=== PATIENT | male | born 1985 | race Caucasian/White ===

== ENCOUNTER 2016-11-13 19:14 | Emergency (ER) | payer OTHER ==
[~2016-11-13] VITALS: Ht 170.2 cm; Wt 91.0 kg
[2016-11-13 19:30] VITALS: Ht 170.2 cm; Wt 91.0 kg
[2016-11-13] MEDS ORDERED: AZITHROMYCIN 250 MG TAB PO ONE (22:30)
[2016-11-13] MEDS ORDERED: CEFTRIAXONE 250 MG INJ IM ONE (22:30)
[2016-11-13] MEDS ORDERED: CEPH-443 PO (22:31)
[2016-11-13] MEDS ORDERED: NAPR-688 PO (22:32)
--- NOTE | 2016-11-13 22:36 | ERD ---
ER Documentation Chief Complaint Date/Time DATE: 11/13/16 TIME: 22:33 Chief Complaint pain at genital area foreskin x 4 days HPI This 31-year-old male presents with irritation around his genital area for 4 days. He did use some new oil on the penis the day before this happened. He is ready seen his primary care doctor who thought it might be a fungal infection given the fungal cream however rash is only gotten worse. He is urinating normally. He is also worried about possible STD exposure and has had a negative HIV test in the last few days. ROS All systems reviewed and are negative except as per history of present illness. Medications Home Meds Active Scripts Naproxen* (Naproxen*) 500 Mg Tablet, 500 MG PO BID Y for PAIN, #20 TAB Prov:FRANCESCATALINACORBY DO 11/13/16 Cephalexin* (Keflex*) 500 Mg Capsule, 500 MG PO QID for 5 Days, CAP Prov:FRANCESCORBY DO 11/13/16 Allergies Allergies: Coded Allergies: No Known Allergy (Unverified , 11/13/16) PMhx/Soc Medical and Surgical Hx: pt denies Medical Hx, pt denies Surgical Hx Hx Alcohol Use: Yes (SOCIALLY) Hx Substance Use: No Hx Tobacco Use: Yes (1 1/2PACK/DAY) Smoking Status: Heavy tobacco smoker Physical Exam Vitals Vital Signs Date Time Temp Pulse Resp B/P Pulse Ox O2 Delivery O2 Flow Rate FiO2 11/13/16 19:30 98.3 116 20 124/70 100 Physical Exam Const: [] No distress Abd/genitals: Soft, non tender, non distended. Normal bowel sounds. Is with normal appearance until foreskin is easily retracted showing erythematous irritation with no vesicular lesions, no ulcerations, 2 areas of very slight raised erythema and some mild skin breakdown. No foul order or purulence. Results 24 hrs Current Medications Medications (Trade) Dose Ordered Sig/Laverne Route PRN Reason Start Time Stop Time Status Last Admin Dose Admin Ceftriaxone Sodium (Rocephin) 250 mg ONCE ONCE IM 11/13/16 22:30 11/13/16 22:31 DC Azithromycin (Zithromax) 1,000 mg ONCE ONCE PO 11/13/16 22:30 11/13/16 22:31 DC Procedures/MDM Patient likely has balanitis. As you concerned about exposure to possible STDs does have mild genital lesions I will treat him both Rocephin and azithromycin emergency room. Antifungal cream did not have any effect except to make the rash appear worse to him I am going to give him Keflex for 5 days as well. There is no evidence of herpes at this time or any apparent potential for phimosis or paraphimosis. Primary care e follow-up is advised. Also advising urology follow-up. Return precautions to the ER given. Departure Diagnosis: Primary Impression: Balanitis Condition: Stable Patient Instructions: Rei Additional Instructions: Call your primary care doctor TOMORROW for an appointment during the next 2-3 days.See the doctor sooner or return here if your condition worsens before your appointment time. CORBY DANIELS DO Nov 13, 2016 22:36
[2016-11-13 22:55] VITALS: BP 160/105; PULSE 94; RESP 18; TEMP 98.4
== END 2016-11-13 22:37 | disposition home or self-care (01) ==
LOC: FTE 19:14
DX: N48.1 Balanitis (principal); F17.210 Nicotine dependence, cigarettes, uncomplicated
CPT/HCPCS: 96372; J0696; Z7502; Z7610

== ENCOUNTER 2017-02-22 15:58 | Emergency (ER) | payer OTHER ==
[~2017-02-22] VITALS: Ht 180.3 cm; Wt 93.0 kg
[~2017-02-22 15:58] MED LIST: CEPH-443 PO; NAPR-688 PO
[2017-02-22 16:03] VITALS: Ht 180.3 cm; Wt 93.0 kg
--- NOTE | 2017-02-22 16:50 | ERD ---
ER Documentation Chief Complaint Date/Time DATE: 02/22/17 TIME: 16:47 Chief Complaint CHEST PAIN TODAY AT NOON HPI This is a 31-year-old male with a history of anxiety and hypertension presenting to the emergency department complaining of a localized left sided chest pain that he describes as pressure that occurred at noon. Patient states the pain was 10 out of 10 severe lasting for about 2 minutes. He states that after that it became 1 out of 10. He admits to having nonspecific vague mild shortness of breath at that time. Patient states that this chest pain occurs once every 6 months and he has been already seen by his primary care doctor in which he had a stress test and Holter monitor however the results are still pending. He states that he will be following up on March 24 for the results. Patient denies any drug use or alcohol use. He admits to having 1 pack of cigarettes per day for the past 10 years. Denies any recent traveling ROS All systems reviewed and are negative except as per history of present illness. Medications Home Meds Active Scripts Naproxen* (Naproxen*) 500 Mg Tablet, 500 MG PO BID Y for PAIN, #20 TAB Prov:FRANCESCORBY DO 11/13/16 Cephalexin* (Keflex*) 500 Mg Capsule, 500 MG PO QID for 5 Days, CAP Prov:CORBY DANIELS DO 11/13/16 Allergies Allergies: Coded Allergies: No Known Allergy (Unverified , 11/13/16) PMhx/Soc Hx Alcohol Use: Yes (SOCIALLY) Hx Substance Use: No Hx Tobacco Use: Yes (1 1/2PACK/DAY) Physical Exam Vitals Vital Signs Date Time Temp Pulse Resp B/P Pulse Ox O2 Delivery O2 Flow Rate FiO2 02/22/17 16:03 98.2 93 18 150/91 99 Physical Exam GENERAL: no acute distress, non-toxic appearing, sitting up in bed HENT: normocephalic/atraumatic EYES: conjunctiva is normal NECK: no noticeable or palpable swelling, no carotid bruits, no JVD CARDIOVASCULAR: RRR, good S1S2, no murmurs or gallops heard PULM: clear to auscultation, no use of accessory muscles, no crackles or wheezes. ABDOMEN: normal bowel sounds, abdomen soft and nontender EXT: no edema, cyanosis or clubbing MUSCULOSKELETAL: 5/5 strength, normal range of motion, no swollen or erythematous joints. NEURO: alert and oriented SKIN: no rashes, skin warm and dry, no erythematous areas BREAST: breast exam was not relevant, therefore not preformed PSYCH: normal mood and mentation, denies suicidal or homicidal ideation and thoughts Result Diagram: 02/22/17 1705 02/22/17 1705 Results 24 hrs Laboratory Tests Test 02/22/17 17:05 White Blood Count 9.710^3/ul Red Blood Count 5.4810^6/ul Hemoglobin 17.5g/dl Hematocrit 48.7% Mean Corpuscular Volume 88.9fl Mean Corpuscular Hemoglobin 31.9pg Mean Corpuscular Hemoglobin Concent 35.9g/dl Red Cell Distribution Width 12.8% Platelet Count 47084^3/UL Mean Platelet Volume 11.4fl Neutrophils % 46.1% Lymphocytes % 38.9% Monocytes % 11.5% Eosinophils % 2.2% Basophils % 0.6% Nucleated Red Blood Cells % 0.0/100WBC Neutrophils # 4.510^3/ul Lymphocytes # 3.810^3/ul Monocytes # 1.110^3/ul Eosinophils # 0.210^3/ul Basophils # 0.110^3/ul Nucleated Red Blood Cells # 0.010^3/ul Sodium Level 140mmol/L Potassium Level 4.2mmol/L Chloride Level 101mmol/L Carbon Dioxide Level 27mmol/L Anion Gap 16 Blood Urea Nitrogen 12mg/dl Creatinine 0.89mg/dl Glucose Level 93mg/dl Calcium Level 9.7mg/dl Troponin I < 0.012ng/ml Procedures/MDM This is a 31-year-old male with a history of anxiety and hypertension presenting to the emergency department complaining of a localized left sided chest pain that he describes as pressure that occurred at noon. Patient states that it was severe for a couple minutes and then resolved. Patient is being followed up with his primary care physician, he is already had a stress test and Holter monitor and results are still pending. Patient will be following up for results on March 24. I have a low suspicion for STEMI or non-stemi, low suspicion for pulmonary embolism, pneumonia or pneumothorax. An EKG was done in the ED and was unremarkable for STEMI or dysrhythmia. Chest x-ray did not show any infiltrates, and with Dr. elizabeth. Blood work was done, troponin was negative in the ED. I discussed with patient to follow-up with his primary care physician. Patient is hematuria stable for discharge for home. Discussed return to the ER for any worsening signs or symptoms he understands and agrees with this plan EKG: read and signed off by myself and Dr.Ben Stephens Rate/Rhythm: Normal Sinus Rhythm at 90bpm QRS, ST, T-waves: Nonspecific T wave changes in leads III, aVR, V1 Impression: No evidence of ischemia or arrhythmia Chest X-ray 1V Interpreted by me: Soft Tissue: No acute abnormalities Bones: No acute abnormalities Mediastinum/Cardiac Silhouette/Lungs: No acute abnormalities Departure Diagnosis: Primary Impression: Chest pain Condition: Stable AMELIA JEROME PA-C February 22, 2017 16:50
[2017-02-22 17:17] LABS: ADD SCAN DIFF NO
[2017-02-22 17:20] LABS: BASOPHIL # 0.1 10^3/ul (0.0-0.1); BASOPHILS % 0.6 % (0.0-2.0); EOSINOPHILS # 0.2 10^3/ul (0.0-0.5); EOSINOPHILS % 2.2 % (0.0-7.0); HEMATOCRIT 48.7 % (42.0-52.0); HEMOGLOBIN 17.5 g/dl (14.0-18.0); LYMPHOCYTES # 3.8 10^3/ul (0.8-2.9); LYMPHOCYTES % 38.9 % (15.0-51.0); MEAN CORPUSCULAR HEMOGLOBIN 31.9 pg (29.0-33.0); MEAN CORPUSCULAR HGB CONC 35.9 g/dl (32.0-37.0); MEAN CORPUSCULAR VOLUME 88.9 fl (82.0-101.0); MEAN PLATELET VOLUME 11.4 fl (7.4-10.4); MONOCYTE # 1.1 10^3/ul (0.3-0.9); MONOCYTES % 11.5 % (0.0-11.0); NEUTROPHIL # 4.5 10^3/ul (1.6-7.5); NEUTROPHILS % 46.1 % (39.0-77.0); PLATELET COUNT 176 10^3/UL (140-415); RED BLOOD COUNT 5.48 10^6/ul (4.70-6.10); RED CELL DISTRIBUTION WIDTH 12.8 % (11.5-14.5); WHITE BLOOD COUNT 9.7 10^3/ul (4.8-10.8)
--- NOTE | 2017-02-22 17:24 | RADRPT ---
PROCEDURE: XR Chest. CLINICAL INDICATION: Chest pain. TECHNIQUE: Single frontal view. COMPARISON: None. FINDINGS: The lungs are clear. The heart size is normal. There is no pleural effusion. There is no pneumothorax. IMPRESSION: 1. Normal chest radiograph. RPTAT: QQ .Brett Bejarano MD, Date Time Electronically viewed and signed by .Brett Bejarano MD, on 02/22/2017 17:24 .R/
[2017-02-22 18:09] LABS: CHLORIDE 101 mmol/L (97-110); POTASSIUM 4.2 mmol/L (3.5-5.1); SODIUM 140 mmol/L (135-144)
[2017-02-22 18:12] LABS: ANION GAP 16 (8-16); BLOOD UREA NITROGEN 12 mg/dl (7-20); CARBON DIOXIDE 27 mmol/L (21-31); CREATININE 0.89 mg/dl (0.61-1.24)
[2017-02-22 18:13] LABS: CALCIUM 9.7 mg/dl (8.4-10.2); GLUCOSE 93 mg/dl (70-220)
[2017-02-22 18:26] LABS: TROPONIN-I < 0.012 ng/ml (0.00-0.12)
== END 2017-02-22 19:07 | disposition home or self-care (01) ==
LOC: FTE 15:58
DX: R07.89 Other chest pain (principal); F17.210 Nicotine dependence, cigarettes, uncomplicated; I10 Essential (primary) hypertension
CPT/HCPCS: 71010; 80048; 84484; 85025; 93005

== ENCOUNTER 2017-03-23 18:32 | Emergency (ER) | payer OTHER ==
[~2017-03-23] VITALS: Ht 177.8 cm; Wt 93.5 kg
[2017-03-23 18:36] VITALS: Ht 177.8 cm; Wt 93.5 kg
[2017-03-23] MEDS ORDERED: IBUP-1542 PO (18:54)
[2017-03-23] MEDS ORDERED: IBUPROFEN 800 MG TAB PO ONE (19:00)
--- NOTE | 2017-03-23 19:51 | ERD ---
ER Documentation Chief Complaint Date/Time DATE: 03/23/17 TIME: 19:48 Chief Complaint neck pain x 2 days after seeing chiropractor HPI Patient is a 31-year-old male with hypertension who presents for neck pain. He said that he has had neck pain for a long time. He went to his chiropractor yesterday and had an adjustment done to his neck. He said that his pain is a 2 out of 10. He has had no treatment today for the pain. He did not call his primary doctor. He feels lightheaded. He also has pain around his left eye. The neck pain is on the right side of the neck. Upon review of old medical records this is the patient's third visit to the ER but review of the emergency department information exchange shows visits to another ER as well. ROS All systems reviewed and are negative except as per history of present illness. Medications Home Meds Active Scripts Ibuprofen* (Motrin*) 600 Mg Tab, 600 MG PO Q8, #30 TAB Prov:SEHRIF HECTOR MD 03/23/17 Naproxen* (Naproxen*) 500 Mg Tablet, 500 MG PO BID Y for PAIN, #20 TAB Prov:CORBY DANIELS DO 11/13/16 Cephalexin* (Keflex*) 500 Mg Capsule, 500 MG PO QID for 5 Days, CAP Prov:CORBY DANIELS DO 11/13/16 Allergies Allergies: Coded Allergies: No Known Allergy (Unverified , 11/13/16) PMhx/Soc Medical and Surgical Hx: pt denies Medical Hx, pt denies Surgical Hx History of Surgery: No Anesthesia Reaction: No Hx Neurological Disorder: No Hx Respiratory Disorders: No Hx Cardiac Disorders: No Hx Psychiatric Problems: No Hx Miscellaneous Medical Probl: No Hx Alcohol Use: No Hx Substance Use: No Hx Tobacco Use: Yes Smoking Status: Current every day smoker FmHx Family History: diabetes Physical Exam Vitals Vital Signs Date Time Temp Pulse Resp B/P Pulse Ox O2 Delivery O2 Flow Rate FiO2 03/23/17 18:36 99.1 72 20 157/80 99 Physical Exam Const: No acute distress Head: Atraumatic Eyes: Normal Conjunctiva ENT: Normal External Ears, Nose and Mouth. Neck: Full range of motion..~ No meningismus. Pain over the strap muscles of the right neck, no bruits Resp: Clear to auscultation bilaterally Cardio: Regular rate and rhythm, no murmurs Abd: Soft, non tender, non distended. Normal bowel sounds Skin: No petechiae or rashes Back: No midline or flank tenderness Ext: No cyanosis, or edema Neur: Awake and alert, cranial nerves II through XII intact, strength is 5 out of 5 in all 4 extremities, no slurred speech Psych: Normal Mood and Affect Results 24 hrs Current Medications Medications (Trade) Dose Ordered Sig/Laverne Route PRN Reason Start Time Stop Time Status Last Admin Dose Admin Ibuprofen (Motrin) 800 mg ONCE ONCE PO 03/23/17 19:00 03/23/17 19:01 DC Procedures/MDM Smoking Cessation Therapy: Pt. was lectured for greater than 3 minutes on the health risks of continued smoking and the benefits of cessation. Patient is a 31-year-old male who presents with right-sided neck pain. At this point I doubt serious etiology such as stroke or carotid dissection. He has a history of head and neck pain in the past. There may be an element of drug- seeking behavior given his visits to 2 separate emergency departments. I will not give him narcotic medicines for this. I will give him a prescription for ibuprofen and a dose of ibuprofen in the emergency department. This may be musculoskeletal type pain. I do not believe he requires further workup or admission the hospital at this time but he should follow-up closely with a primary doctor within 24 hours for reevaluation. Departure Diagnosis: Primary Impression: Neck pain Condition: Fair Patient Instructions: Neck Pain, No Trauma Referrals: [facility] H.CChintan (PCP) MILANA CARMEN Additional Instructions: SPECIALIST: YOU HAVE A MEDICAL CONDITION WHICH REQUIRES YOU TO SEE A SPECIALIST WITHIN THE NEXT 1-2 DAYS. PLEASE FOLLOW UP WITH YOUR PRIMARY PHYSICIAN FOR REFFERAL.IF YOU DO NOT HAVE A PRIMARY CARE PHYSICIAN AND/OR YOU CAN NOT AFFORD TO SEE A PHYSICIAN THE FOLLOWING RESOURCES HAVE BEEN SUPPLIED TO YOU. IT IS YOUR RESPONSIBILITY TO BE SEEN BY THE SPECIALIST SHERIF HECTOR MD Mar 23, 2017 19:51
== END 2017-03-23 19:08 | disposition home or self-care (01) ==
LOC: FTE 18:32
DX: M54.2 Cervicalgia (principal); F17.210 Nicotine dependence, cigarettes, uncomplicated
CPT/HCPCS: 99283

== ENCOUNTER 2017-07-14 16:43 | Emergency (ER) | payer OTHER ==
[~2017-07-14] VITALS: Ht 175.3 cm; Wt 88.5 kg
[~2017-07-14 16:43] MED LIST changes: +IBUP-1542 PO
[2017-07-14 17:01] VITALS: Ht 175.3 cm; Wt 88.5 kg
[2017-07-14 19:50] LABS: BASOPHIL # 0.1 10^3/ul (0.0-0.1); BASOPHILS % 0.4 % (0.0-2.0); EOSINOPHILS # 0.2 10^3/ul (0.0-0.5); EOSINOPHILS % 1.7 % (0.0-7.0); HEMATOCRIT 51.3 % (42.0-52.0); HEMOGLOBIN 18.3 g/dl (14.0-18.0); LYMPHOCYTES # 3.5 10^3/ul (0.8-2.9); LYMPHOCYTES % 29.9 % (15.0-51.0); MEAN CORPUSCULAR HEMOGLOBIN 31.8 pg (29.0-33.0); MEAN CORPUSCULAR HGB CONC 35.7 g/dl (32.0-37.0); MEAN CORPUSCULAR VOLUME 89.1 fl (82.0-101.0); MEAN PLATELET VOLUME 11.3 fl (7.4-10.4); MONOCYTES % 8.1 % (0.0-11.0); NEUTROPHIL # 6.9 10^3/ul (1.6-7.5); NEUTROPHILS % 59.2 % (39.0-77.0); PLATELET COUNT 183 10^3/UL (140-415); RED BLOOD COUNT 5.76 10^6/ul (4.70-6.10); RED CELL DISTRIBUTION WIDTH 12.7 % (11.5-14.5); WHITE BLOOD COUNT 11.7 10^3/ul (4.8-10.8)
[2017-07-14 20:04] LABS: INR 0.92; PROTIME 12.4 Sec (12.2-14.2)
[2017-07-14 20:05] LABS: ANION GAP 13 (8-16); BLOOD UREA NITROGEN 13 mg/dl (7-20); CALCIUM 9.8 mg/dl (8.4-10.2); CARBON DIOXIDE 29 mmol/L (21-31); CHLORIDE 103 mmol/L (97-110); CREATININE 0.96 mg/dl (0.61-1.24); GLUCOSE 93 mg/dl (70-220); PARTIAL THROMBOPLASTIN TIME 27.5 Sec (25.0-35.0); POTASSIUM 4.4 mmol/L (3.5-5.1); SODIUM 141 mmol/L (135-144)
[2017-07-14 20:19] LABS: TROPONIN-I < 0.012 ng/ml (0.00-0.12)
--- NOTE | 2017-07-14 20:21 | RADRPT ---
PROCEDURE: XR Chest. CLINICAL INDICATION: Chest pain. TECHNIQUE: Single frontal chest x-ray. COMPARISON: 02/22/2017 FINDINGS: The cardiomediastinal silhouette is unremarkable. There is no congestive heart failure.. No focal i nfiltrate is seen. There is no pleural effusion. There is no pneumothorax. The osseous structures are unremarkable. IMPRESSION: 1. No active disease. RPTAT: HMVK .Tramaine Saeed MD, MD Date Time Electronically viewed and signed by .Tramaine Saeed MD, on 07/14/2017 20:20 .K/
[2017-07-14] MEDS ORDERED: IBUP-1542 PO (20:27)
[2017-07-14 20:48] VITALS: BP 129/89; PULSE 69; RESP 16; TEMP 98.6
--- NOTE | 2017-07-14 23:33 | ERD ---
ER Documentation Chief Complaint Date/Time DATE: 07/14/17 TIME: 23:29 Chief Complaint CP with anxiety x 3 days HPI Patient is a 32-year-old male presenting to the emergency department with complaints of left-sided chest pain and left arm weakness ongoing intermittently for the past 3 days. He states he has had waxing and waning chest pain over the past year and has had an echo completed which is ordered by his primary care physician. He has not seen a business line manager. He does have past medical history of hypertension and anxiety and he smokes approximately 1.5 packs of cigarettes per day. Symptoms are not worse with exertion. He has no family cardiac history. Symptoms are moderate in severity. He denies other symptoms at this time. ROS All systems reviewed and are negative except as per history of present illness. Medications Home Meds Active Scripts Ibuprofen* (Motrin*) 600 Mg Tab, 600 MG PO Q6, #30 TAB Prov:EDISON TEJEDA PA-C 07/14/17 Ibuprofen* (Motrin*) 600 Mg Tab, 600 MG PO Q8, #30 TAB Prov:SHERIF HECTOR MD 03/23/17 Naproxen* (Naproxen*) 500 Mg Tablet, 500 MG PO BID Y for PAIN, #20 TAB Prov:CORBY DANIELS DO 11/13/16 Cephalexin* (Keflex*) 500 Mg Capsule, 500 MG PO QID for 5 Days, CAP Prov:CORBY DANIELS DO 11/13/16 Allergies Allergies: Coded Allergies: No Known Allergy (Unverified , 11/13/16) PMhx/Soc Medical and Surgical Hx: pt denies Medical Hx, pt denies Surgical Hx History of Surgery: No Anesthesia Reaction: No Hx Neurological Disorder: No Hx Respiratory Disorders: No Hx Cardiac Disorders: No Hx Psychiatric Problems: No Hx Miscellaneous Medical Probl: No Hx Alcohol Use: No Hx Substance Use: No Hx Tobacco Use: Yes Smoking Status: Current every day smoker Physical Exam Vitals Vital Signs Date Time Temp Pulse Resp B/P Pulse Ox O2 Delivery O2 Flow Rate FiO2 07/14/17 20:48 98.6 69 16 129/89 100 Room Air 07/14/17 17:01 98.3 89 18 127/88 99 Physical Exam Const: Nontoxic, well-appearing male in no acute distress. Head: Atraumatic Eyes: Normal Conjunctiva ENT: Normal External Ears, Nose and Mouth. Neck: Full range of motion..~ No meningismus. Resp: Clear to auscultation bilaterally Cardio: Regular rate and rhythm, no murmurs. There is reproducible chest tenderness over the left chest wall. Abd: Soft, non tender, non distended. Normal bowel sounds Skin: No petechiae or rashes Back: No midline or flank tenderness Ext: No cyanosis, or edema Neur: Awake and alert Psych: Normal Mood and Affect Result Diagram: 07/14/17193207/14/171932 Results 24 hrs Laboratory Tests Test 07/14/17 19:33 White Blood Count 11.710^3/ul Red Blood Count 5.7610^6/ul Hemoglobin 18.3g/dl Hematocrit 51.3% Mean Corpuscular Volume 89.1fl Mean Corpuscular Hemoglobin 31.8pg Mean Corpuscular Hemoglobin Concent 35.7g/dl Red Cell Distribution Width 12.7% Platelet Count 66878^3/UL Mean Platelet Volume 11.3fl Neutrophils % 59.2% Lymphocytes % 29.9% Monocytes % 8.1% Eosinophils % 1.7% Basophils % 0.4% Nucleated Red Blood Cells % 0.0/100WBC Neutrophils # 6.910^3/ul Lymphocytes # 3.510^3/ul Monocytes # 1.010^3/ul Eosinophils # 0.210^3/ul Basophils # 0.110^3/ul Nucleated Red Blood Cells # 0.010^3/ul Prothrombin Time 12.4Sec Prothrombin Time Ratio 1.0 INR International Normalized Ratio 0.92 Activated Partial Thromboplast Time 27.5Sec Sodium Level 141mmol/L Potassium Level 4.4mmol/L Chloride Level 103mmol/L Carbon Dioxide Level 29mmol/L Anion Gap 13 Blood Urea Nitrogen 13mg/dl Creatinine 0.96mg/dl Glucose Level 93mg/dl Calcium Level 9.8mg/dl Troponin I < 0.012ng/ml Procedures/MDM 32-year-old male presenting to the emergency department with complaints of chest pain. Presentation is not consistent with acute coronary syndrome as it has been ongoing intermittently over the past year. There was also some reproducible chest wall tenderness noted on examination. CBC showed mild leukocytosis at 11.7, but not significant there is no signs of anemia. Chemistry panel showed no acute abnormalities. Troponin was within normal limits. EKG was not concerning for coronary ischemia. The patient was offered medication in the department but he declined. Chest x-ray showed no active disease. Symptoms are likely musculoskeletal and the patient was diagnosed with chest wall pain. Strict ER return precautions were discussed. Close follow-up with the primary care physician within 1-2 days was advised. Low suspicion for acute coronary syndrome, pulmonary embolism, pneumothorax, aortic dissection, or other emergent conditions at time of discharge. EKG: Reviewed by attending physician, Dr. Evy Galo. Rate/Rhythm: Normal sinus rhythm with a rate of 74 bpm. QRS, ST, T-waves: No changes consistent w/ acute ischemia Impression: No evidence of ischemia or arrhythmia PROCEDURE: XR Chest. CLINICAL INDICATION: Chest pain. TECHNIQUE: Single frontal chest x-ray. COMPARISON: 02/22/2017 FINDINGS: The cardiomediastinal silhouette is unremarkable. There is no congestive heart failure.. No focal infiltrate is seen. There is no pleural effusion. There is no pneumothorax. The osseous structures are unremarkable. IMPRESSION: 1. No active disease. RPTAT: HMVK .Tramaine Saeed MD, MD Date Time Electronically viewed and signed by .Tramaine Saeed MD, MD on 07/14/2017 20:20 Departure Diagnosis: Primary Impression: Chest wall pain Condition: Fair Patient Instructions: Chest Wall Pain, Costochondritis Additional Instructions: Follow up with your PCP within the next 1-3 days for a repeat evaluation. If you require a referral to a specialist, your Primary Care Provider may be able to provide this for you. In most patient cases, a referral is not required. If you have further questions regarding this matter, please ask your Primary Care Provider. Return the the emergency department immediately if symptoms worsen or change. If you have any questions regarding medications, ask your pharmacist or us before you leave. If any adverse reactions, occur while taking your medications, discontinue the treatment and return to the emergency department immediately. If any new or worsening symptoms, uncontrolled fevers, or other unexplained symptoms occur, return to the emergency department immediately. Take your medications as directed, and complete the entire course of treatment. EDISON TEJEDA PA-C Jul 14, 2017 23:33
== END 2017-07-14 20:49 | disposition home or self-care (01) ==
LOC: FTE 16:43
DX: R07.89 Other chest pain (principal); F17.210 Nicotine dependence, cigarettes, uncomplicated
CPT/HCPCS: 36415; 71010; 80048; 84484; 85025; 85610; 85730; 93005; Z7502

== ENCOUNTER 2017-09-02 21:23 | Emergency (ER) | payer OTHER ==
[~2017-09-02] VITALS: Ht 170.2 cm; Wt 88.6 kg
[2017-09-02 21:50] VITALS: Ht 170.2 cm; Wt 88.6 kg
[2017-09-03] MEDS ORDERED: DEXAMETHASONE 10 MG/ML 1 ML INJ IM ONE
[2017-09-03] MEDS ORDERED: ALBUTEROL 0.083% (NEB) 2.5 MG/3 ML AMP HHN STA
[2017-09-03] MEDS ORDERED: IPRATROPIUM (NEB) 0.5 MG/2.5 ML AMP HHN ONE
--- NOTE | 2017-09-03 00:57 | RADRPT ---
PROCEDURE: XR Chest. CLINICAL INDICATION: Cough. TECHNIQUE: Portable AP view of the chest was obtained. COMPARISON: 07/14/2017 FINDINGS: The cardiomediastinal silhouette is within normal limits. The lungs are clear. There is no evidenc e for pleural effusion, pneumothorax or pulmonary vascular congestion. The osseous structures are i ntact with no evidence for acute abnormality. RPTAT:HJJR IMPRESSION: No evidence for acute intrathoracic pathology or change from 07/14/2017. Physician Dipika Date Time Electronically viewed and signed by Juan Haines Physician on 09/03/2017 00:56 /
[2017-09-03] MEDS ORDERED: ALBU8.5H3 INH (01:08)
[2017-09-03] MEDS ORDERED: PRED20TA PO (01:08)
[2017-09-03] MEDS ORDERED: PROM6.25 PO (01:08)
--- NOTE | 2017-09-03 02:08 | ERD ---
ER Documentation Chief Complaint Chief Complaint cough x 3 days HPI 32-year-old male complaining of cough with flulike symptoms 5 days ago. Patient states that he had a fever a couple days ago which has resolved. He has a productive cough and feels that there is something stuck in his chest that will not come out. He is taking azithromycin. Denies continued fever and denies shortness of breath. No hemoptysis. Patient is also taking DayQuil and NyQuil. Denies medical problems. NKDA. Surgical history: Denies. Social history smokes a pack a day ROS All systems reviewed and are negative except as per history of present illness. Medications Home Meds Active Scripts Promethazine Hcl* (Phenergan* Liq) 6.25 Mg/5 Ml Syrup, 6.25 MG PO Q6H Y for COUGH, #100 ML Prov:WENDY OBANDO PA-C 09/03/17 Albuterol Sulfate* (Proair HFA*) 8.5 Gm Hfa.aer.ad, 2 PUFF INH Q4, #1 INHALER Prov:WENDY OBANDO PA-C 09/03/17 Prednisone* (Prednisone*) 20 Mg Tab, 40 MG PO DAILY for 4 Days, TAB Prov:WENDY OBANDO PA-C 09/03/17 Ibuprofen* (Motrin*) 600 Mg Tab, 600 MG PO Q6, #30 TAB Prov:EDISON TEJEDA PA-C 07/14/17 Ibuprofen* (Motrin*) 600 Mg Tab, 600 MG PO Q8, #30 TAB Prov:SHERIF HECTOR MD 03/23/17 Naproxen* (Naproxen*) 500 Mg Tablet, 500 MG PO BID Y for PAIN, #20 TAB Prov:CORBY DANIELS DO 11/13/16 Cephalexin* (Keflex*) 500 Mg Capsule, 500 MG PO QID for 5 Days, CAP Prov:CORBY DANIELS DO 11/13/16 Allergies Allergies: Coded Allergies: No Known Allergy (Unverified , 11/13/16) PMhx/Soc Medical and Surgical Hx: pt denies Surgical Hx History of Surgery: No Anesthesia Reaction: No Hx Neurological Disorder: No Hx Respiratory Disorders: No Hx Cardiac Disorders: Yes (HTN) Hx Psychiatric Problems: No Hx Miscellaneous Medical Probl: No Hx Alcohol Use: No Hx Substance Use: No Hx Tobacco Use: Yes Smoking Status: Heavy tobacco smoker Physical Exam Vitals Vital Signs Date Time Temp Pulse Resp B/P Pulse Ox O2 Delivery O2 Flow Rate FiO2 09/03/17 00:14 89 17 99 21 09/02/17 21:50 98.8 90 20 136/91 98 Physical Exam GENERAL: The patient is well-appearing, well-nourished, in no acute distress HEENT: Atraumatic. Conjunctivae are pink. Pupils equal, round, and reactive to light. There is no scleral icterus. Tympanic membranes clear bilaterally. Oropharynx clear. No nystagmus or photophobia. NECK: C-spine is soft and supple. There is no meningismus. There is no cervical lymphadenopathy. CHEST: Diffuse rhonchi heard on auscultation with the occasional wheeze. Breath sounds heard in all lung linn. HEART: Regular rate and rhythm. No murmurs, clicks, rubs or gallops. No S3 or S4. Results 24 hrs Current Medications Medications (Trade) Dose Ordered Sig/Laverne Route PRN Reason Start Time Stop Time Status Last Admin Dose Admin Albuterol (Proventil 0.083% (Neb)) 2.5 mg ONCE STAT HHN 09/03/17 00:00 09/03/17 00:03 DC 09/03/17 00:14 Ipratropium [place] (Atrovent 0.02% (Neb)) 0.5 mg ONCE ONCE HHN 09/03/17 00:00 09/03/17 00:03 DC 09/03/17 00:14 Dexamethasone (Decadron) 10 mg ONCE ONCE IM 09/03/17 00:00 09/03/17 00:03 DC Procedures/MDM DIAGNOSTIC IMAGING REPORT Patient: CASI GODOY : 1985 Age: 32 Sex: M MR #: [id number] DOS: 09/03/17 0000 Ordering MD: GEORGIA OBANDO PA-C Location: [facility] Room/Bed: PROCEDURE: XR Chest. CLINICAL INDICATION: Cough. TECHNIQUE: Portable AP view of the chest was obtained. COMPARISON: 07/14/2017 FINDINGS: The cardiomediastinal silhouette is within normal limits. The lungs are clear. There is no evidence for pleural effusion, pneumothorax or pulmonary vascular congestion. The osseous structures are intact with no evidence for acute abnormality. RPTAT:HJJR IMPRESSION: No evidence for acute intrathoracic pathology or change from 07/14/2017. ER Course: Albuterol and Atrovent breathing treatment with Decadron given in ED. Patient tolerated procedure well and symptoms improved. MDM: 32-year-old male complaining of productive cough. A low suspicion for pneumonia as patient's chest x-ray is within normal limits. Patient's vital signs are stable. Patient likely has reactive airway secondary to viral cough. Patient will be discharged with steroids and breathing medications. Patient is told to continue taking azithromycin as previously prescribed. I have low suspicion for PE. Low suspicion for other pulmonary emergencies at this time. Patient's exams are not concerning. Patient is discharged with strict ER precautions and recommended to follow-up with primary care within 1-2 days for close evaluation. Patient is told if symptoms change or worsen to return to the ER. All questions answered at discharge. Departure Diagnosis: Primary Impression: Cough Condition: Stable Patient Instructions: Cough, Chronic, Uncertain Cause, (Adult) Referrals: [facility] (PCP) Additional Instructions: FOLLOW UP WITH YOUR PRIMARY CARE PHYSICIAN TOMORROW.Return to this facility if you are not improving as expected. WENDY OBANDO PA-C Sep 03, 2017 02:08
== END 2017-09-03 01:13 | disposition home or self-care (01) ==
LOC: FTE 21:23
DX: R05 Cough (principal); I10 Essential (primary) hypertension; F17.210 Nicotine dependence, cigarettes, uncomplicated
CPT/HCPCS: 71010; 94664; Z7502; Z7610; J1100

== ENCOUNTER 2017-10-21 18:46 | Emergency (ER) | END 2017-10-21 23:20 | disposition home or self-care (01) ==

== ENCOUNTER 2018-06-14 22:25 | Emergency (ER) | END 2018-06-15 01:51 | disposition home or self-care (01) ==

== ENCOUNTER 2018-10-04 12:18 | Emergency (ER) | END 2018-10-04 14:35 | disposition home or self-care (01) ==

== ENCOUNTER 2018-11-26 16:16 | Emergency (ER) | payer SELFPAY ==
[~2018-11-26] VITALS: Ht 177.8 cm; Wt 83.1 kg
[~2018-11-26 16:16] MED LIST changes: +AZIT250T PO; -CEPH-443 PO; +D-ME118S24 PO; +SODI30SP2 NS
[2018-11-26 16:19] VITALS: BP 157/103; PULSE 91; RESP 18; Ht 177.8 cm; Wt 83.1 kg
== END 2018-11-26 19:35 | disposition left against medical advice (07) ==
LOC: E/R 16:16
DX: Z53.21 Procedure and treatment not carried out due to patient leaving prior to being seen by health care provider (principal)

== ENCOUNTER 2019-05-08 14:46 | Emergency (ER) | payer OTHER ==
[~2019-05-08] VITALS: Ht 172.7 cm; Wt 88.9 kg
[~2019-05-08 14:46] MED LIST changes: +ACET500C5 PO; +BUTA1CAP38 PO
[2019-05-08 15:11] VITALS: Ht 172.7 cm; Wt 88.9 kg
[2019-05-08] MEDS ORDERED: KETOROLAC 30 MG INJ IM STA (16:17)
[2019-05-08] MEDS ORDERED: ONDANSETRON (ODT) 4 MG TAB ODT STA (16:20)
--- NOTE | 2019-05-08 17:19 | ERD ---
ER Documentation Chief Complaint Chief Complaint constant head pain x 2wks, nausea, unsteady bal on and off HPI 34-year-old male with no reported past medical surgical history presents with complaint of headache over the past 2 weeks. Describes bitemporal headache with radiation to the posterior of head. Is had intermittent nausea but no episodes of vomiting. States he is not having unstable gait at times. Is the first time he sent headache of this intensity. He otherwise denies chest pain, shortness of breath, dyspnea, new medication use, drug or alcohol abuse, fevers, chills, neck stiffness, ear pain, photophobia, bilateral extremity weakness or paresthesias or any other concerning symptoms. Has tried ibuprofen which helps at times. He otherwise is without complaint. He is an active smoker of over 13 years. ROS All systems reviewed and are negative except as per history of present illness. Medications Home Meds Active Scripts Acetaminophen* (Tylophen*) 500 Mg Capsule, 1 CAP PO Q6H PRN for PAIN AND OR ELEV ATED TEMP, #20 CAP Prov:CLEOPATRA MACKAY PA-C 05/08/19 Eeeoodcspr-Ksceplurhrrpw-Mwqtimqh* (Fioricet*) 50-300-40 Mg Capsule, 1 CAP PO Q4H PRN for HEADACHE for 10 Days, CAP Prov:CLEOPATRA MACKAY PA-C 05/08/19 Ibuprofen* (Motrin*) 600 Mg Tab, 600 MG PO Q6H PRN for PAIN AND OR ELEVATED TEMP, #30 TAB Prov:JUDITH DIAS DO 10/04/18 D-Methorphan Hb/P-Epd HCl/Bpm (Cdpbkswfdp-Lxxufjsmrcj-Xi Syr) 118 Ml Syrup, 5 ML PO Q4H PRN for COUGH, #1 BOTTLE Prov:JUDITH DIAS DO 10/04/18 Sodium Chloride (Saline Nasal [place]) 30 Ml [place], 30 ML NS BID PRN for nasal congestion, #1 BOTTLE Prov:JUDITH DIAS DO 10/04/18 Azithromycin* (Zithromax*) 250 Mg Tablet, 250 MG PO .ANG DIRECTED for bacterial URI, #6 TAB TAKE 500 MG (2 TABS) THE FIRST DAY THEN 250 MG (1 TAB) DAYS 2-5 Prov:JUDITH DIAS DO 10/04/18 Naproxen* (Naproxen*) 500 Mg Tablet, 500 MG PO BID PRN for PAIN, #20 TAB Prov:CORBY DANIELS DO 06/15/18 Allergies Allergies: Coded Allergies: No Known Allergy (Unverified , 10/04/18) PMhx/Soc History of Surgery: No Anesthesia Reaction: No Hx Neurological Disorder: No Hx Respiratory Disorders: No Hx Cardiac Disorders: Yes (HTN) Hx Psychiatric Problems: No Hx Miscellaneous Medical Probl: No Hx Alcohol Use: Yes (socially) Hx Substance Use: No Hx Tobacco Use: Yes ("chain smoker") Smoking Status: Current every day smoker FmHx Family History: No diabetes, No coronary disease, No other Physical Exam Vitals Vital Signs Date Temp Pulse Resp B/P (MAP) Pulse Ox O2 O2 Flow FiO2 Time Delivery Rate 05/08/19 97.6 85 18 154/77 98 15:11 (102) Physical Exam I have reviewed the triage vital signs. Const: Well nourished, well developed, appears stated age Eyes: PERRL, no conjunctival injection HENT: NCAT, Neck supple without meningismus CV: RRR, Warm, well-perfused extremities RESP: CTAB, Unlabored respiratory effort GI: soft, non-tender, non-distended, no masses MSK: No gross deformities appreciated Skin: Warm, dry. No rashes Neuro: grossly non focal Psych: Appropriate mood and affect. Results 24 hrs Current Medications Medications Dose Sig/Laverne Start Time Status Last (Trade) Ordered Route PRN Stop Time Admin Dose Reason Admin Ketorolac 30 mg ONCE STAT 05/08/19 DC 05/08/19 Tromethamine IM 16:17 16:28 (Toradol) 05/08/19 16:21 Ondansetron 4 mg ONCE STAT 05/08/19 DC 05/08/19 HCl (Zofran ODT 16:20 16:27 Odt) 05/08/19 16:22 Procedures/MDM 34-year-old male presents with complaint of headache. This patient presents with a headache most consistent with a Merry type nonemergent headache. Differential diagnosis includes migraine versus tension type headache. No headache red flags. Neurologic exam without evidence of meningismus, focal neurologic findings. Presentation not consistent with acute intracranial bleed to include SAH (lack of risk factors, headache history). Presentation not consistent with acute [employer] infection to include meningitis or brain abscess, Temporal arteritis unlikely, as is acute angle closure glaucoma given history and physical findings. Presentation not consistent with other acute, emergent causes of headache at this time. Plan to treat symptomatically with pain medication. No indication for imaging/LP at this time. Plan: pain medication, CT brain acute finding DISPOSITION PLAN: We discussed follow up with the patient's primary care doctor within 24 to 48 hours. Patient counseled regarding my diagnostic impression and care plan. Prior to discharge all questions answered. Pt agrees with treatment plan and understands strict return precautions. Precautionary instructions provided including instructions to return to the ER if not improving or for any worsening or changing symptoms or concerns. Disclaimer: Inadvertent spelling and grammatical errors are likely due to EHR/dictation software use and do not reflect on the overall quality of patient care. Also, please note that the electronic time recorded on this note does not necessarily reflect the actual time of the patient encounter. Departure Diagnosis: Primary Impression: Headache Condition: Stable Patient Instructions: Self-Care for Headaches Referrals: [facility] (PCP) Additional Instructions: Call your primary care doctor TOMORROW for an appointment during the next 2-3 days.See the doctor sooner or return here if your condition worsens before your appointment time. CLEOPATRA MACKAY PA-C May 08, 2019 17:19
[2019-05-08 17:29] VITALS: BP 129/86; PULSE 69; RESP 18
== END 2019-05-08 17:30 | disposition home or self-care (01) ==
LOC: FTE 14:46
DX: R51 Headache (principal); F17.210 Nicotine dependence, cigarettes, uncomplicated; I10 Essential (primary) hypertension
CPT/HCPCS: 70450; 96372; J1885; Z7502; Z7610